=== PATIENT | female | born 1965 | race Caucasian/White ===

== ENCOUNTER 2022-04-29 22:55 | Inpatient (IN) | payer BC ==
[~2022-04-29] VITALS: Ht 175.3 cm; Wt 56.8 kg
[2022-04-29] MEDS ORDERED: ketorolac tromethamine 15mg/ml inj. IM ONE (23:05)
[2022-04-29] MEDS ORDERED: ondansetron 4mg rapidly disintigrating tab PO ONE (23:05)
[2022-04-29] MEDS ORDERED: morphine 4 MG/ML inj SYRINge IM ONE (23:05)
[2022-04-29] MEDS ORDERED: iohexol 300mg/ml 100ml inj. ONE (23:41)
[2022-04-29] MEDS ORDERED: morphine 4 MG/ML inj SYRINge IV ONE (23:45)
[2022-04-30 00:08] LABS: BASOPHILS % (AUTO) 0.3 % (0-1); EOSINOPHILS % (AUTO) 0.4 % (0-6); HEMATOCRIT 38.3 % (35.0-45.0); HEMOGLOBIN 12.9 g/dl (12.0-16.0); LYMPHOCYTES # (AUTO) 1.2 X10'3 (1.1-4.8); LYMPHOCYTES % (AUTO) 9.8 % (21-51); MEAN CORPUSCULAR HEMOGLOBIN 31.9 PG (27.0-31.0); MEAN CORPUSCULAR HGB CONC 33.7 g/dL (33.0-36.5); MEAN CORPUSCULAR VOLUME 94.5 FL (78-98); MONOCYTES # (AUTO) 0.6 X10'3 (0-0.9); MONOCYTES % (AUTO) 5.1 % (2-12); NEUTROPHILS # (AUTO) 10.2 X10'3 (1.8-7.7); NEUTROPHILS % (AUTO) 84.4 % (42-75); PLATELET COUNT 268 X10'3 (140-440); RED BLOOD COUNT 4.06 X10'6 (4.20-5.60); RED CELL DISTRIBUTION WIDTH 13.7 % (11.5-14.5); WHITE BLOOD COUNT 12.1 X10'3 (4.5-11.0)
[2022-04-30 00:19] LABS: ALANINE AMINOTRANSFERASE 30 U/L (12-78); ALBUMIN 3.6 G/DL (3.4-5.0); ALKALINE PHOSPHATASE 61 IU/L (46-116); ANION GAP 14 (8-16); ASPARTATE AMINO TRANSFERASE 24 U/L (10-37); BILIRUBIN,TOTAL 0.2 MG/DL (0.1-1.0); BLOOD UREA NITROGEN 19 MG/DL (7-18); BUN/CREATININE RATIO 23.2 (6.6-38.0); CALCIUM 8.5 MG/DL (8.5-10.1); CHLORIDE 110 MMOL/L (99-107); CREATININE 0.82 MG/DL (0.40-0.90); GLUCOSE 122 MG/DL (70-104); POTASSIUM 3.7 MMOL/L (3.5-5.1); SODIUM 144 MMOL/L (135-145); TOTAL CARBON DIOXIDE 20.5 MMOL/L (24-32); TOTAL PROTEIN 7.3 G/DL (6.4-8.2); eGFR 72 ML/MIN
[2022-04-30] MEDS ORDERED: ondansetron 4mg rapidly disintigrating tab PO PRN (02:05)
[2022-04-30] MEDS ORDERED: acetaminophen 325mg tablet PO PRN ×2 (02:05)
[2022-04-30] MEDS ORDERED: mag hydrox/Alum hydrox/simeth 30ml oral suspension PO PRN (02:05)
[2022-04-30] MEDS ORDERED: acetaminophen 650mg rectal suppository RC PRN (02:05)
[2022-04-30] MEDS ORDERED: morphine 2 MG/ML inj. syringe IV PRN (02:05)
[2022-04-30] MEDS ORDERED: diphenhydrAMINE 25mg capsule PO PRN (02:05)
[2022-04-30] MEDS ORDERED: HYDROcodone/acetaminophen 5mg/325mg tablet PO PRN (02:05)
[2022-04-30] MEDS ORDERED: bisacodyl 10mg suppository rectal RC PRN (02:05)
[2022-04-30] MEDS ORDERED: diphenhydrAMINE 50 mg/ml inj IV PRN (02:05)
[2022-04-30] MEDS ORDERED: HYDROmorphone inj. 0.5 MG/0.5 ML DISP.SYRIN IV PRN ×2 (02:05→15:50)
[2022-04-30 03:16] LABS: APTT 24 SECONDS (22-32)
[2022-04-30 03:25] LABS: HEMOGLOBIN A1C 5.4 % (4.5-6.2)
[2022-04-30 03:31] LABS: MAGNESIUM 1.9 MG/DL (1.5-2.4); PHOSPHORUS 2.7 MG/DL (2.3-4.5)
[2022-04-30] MEDS: ondansetron/PF 4mg/2ml inj IV PRN ×3 (05:50→19:40)
[2022-04-30] MEDS: HYDROcodone/acetaminophen 10/325mg tab PO PRN ×2 (05:50→10:34)
[2022-04-30] MEDS: pantoprazole 40mg Tablet.DR PO SCH (07:30)
[2022-04-30] MEDS ORDERED: docusate sod 100mg capsule PO SCH (08:00)
[2022-04-30] MEDS: morphine 2 MG/ML inj. syringe IV PRN ×2 (08:36→14:40)
[2022-04-30] MEDS: normal saline 1000ml 1,000 ML IV SCH ×3 (09:00→22:05)
[2022-04-30] MEDS ORDERED: aspirin 81mg, enteric-coated 1 TAB TABLET.DR PO ONE (10:05)
[2022-04-30 12:23] LABS: CLARITY,URINE CLEAR (Clear); COLOR,URINE YELLOW (Yellow); GLUCOSE, URINE NEGATIVE (Neg); KETONES,URINE NEGATIVE (Neg); LEUKOCYTE ESTERASE ,URINE NEGATIVE (Neg); NITRITES, URINE NEGATIVE (Neg); OCCULT BLOOD,URINE MODERATE (Neg); PH,URINE 6.5 (4.8-8.0); PROTEIN,URINE NEGATIVE (Neg); UROBILINOGEN,URINE 0.2 E.U/dL (0.2-1.0)
[2022-04-30 12:35] LABS: UA COLLECTION TYPE FOLEY CATH
[2022-04-30 12:37] LABS: WBC,URINE 0-4 /HPF (0-4)
[2022-04-30 12:38] LABS: BACTERIA,URINE NONE SEEN /HPF (Neg); SQUAMOUS EPITHELIAL CELL,UR FEW /LPF (FEW)
[2022-04-30] MEDS: levoTHYROXINE 75mcg tablet PO SCH (14:40)
[2022-04-30] MEDS: HYDROmorphone 1 mg/ml syringe IV PRN ×2 (16:48→21:36)
[2022-04-30] MEDS: oxyCODONE/APAP 10/325mg tablet PO PRN (18:23)
--- NOTE | 2022-04-30 19:03 | NUR ---
ASSUMED CARE OF PT FROM JONNIE HAMMOND, FIRST CONTACT WITH PT, TALKING FULL SENTENCES, NO RESP DISTRESS, ASKING FOR SOMETHING TO EAT. PT TO GO ROOM 3015, REPORT GIVEN TO SALO HAMMOND
[2022-04-30 20:00] VITALS: BP_SYST 108; BP_SYST 110; BP_DIAS 65; BP_DIAS 75
[2022-04-30] MEDS ORDERED: temazepam 15mg capsule PO PRN (21:00)
[2022-04-30 22:00] VITALS: BP 110/70
[2022-05-01 02:00] VITALS: BP 105/50
[2022-05-01] MEDS: HYDROmorphone 1 mg/ml syringe IV PRN ×5 (02:35→21:24)
[2022-05-01] MEDS: ondansetron/PF 4mg/2ml inj IV PRN ×3 (03:32→17:35)
[2022-05-01] MEDS: oxyCODONE/APAP 10/325mg tablet PO PRN ×4 (03:33→23:45)
[2022-05-01 07:00] VITALS: BP 125/69
[2022-05-01] MEDS: levoTHYROXINE 75mcg tablet PO SCH (07:17)
[2022-05-01] MEDS: pantoprazole 40mg Tablet.DR PO SCH (07:18)
[2022-05-01] MEDS: aspirin 81mg, enteric-coated 1 TAB TABLET.DR PO SCH (07:19)
[2022-05-01 07:27] LABS: BASOPHILS % (AUTO) 0.4 % (0-1); EOSINOPHILS # (AUTO) 0.1 X10'3 (0-0.9); EOSINOPHILS % (AUTO) 1.7 % (0-6); HEMOGLOBIN 11.7 g/dl (12.0-16.0); LYMPHOCYTES # (AUTO) 1.5 X10'3 (1.1-4.8); LYMPHOCYTES % (AUTO) 19.2 % (21-51); MEAN CORPUSCULAR HEMOGLOBIN 32.7 PG (27.0-31.0); MEAN CORPUSCULAR HGB CONC 34.4 g/dL (33.0-36.5); MEAN CORPUSCULAR VOLUME 95.1 FL (78-98); MEAN PLATELET VOLUME 8.3 FL (7.4-10.4); MONOCYTES # (AUTO) 0.7 X10'3 (0-0.9); MONOCYTES % (AUTO) 8.6 % (2-12); NEUTROPHILS # (AUTO) 5.6 X10'3 (1.8-7.7); NEUTROPHILS % (AUTO) 70.1 % (42-75); PLATELET COUNT 211 X10'3 (140-440); RED BLOOD COUNT 3.57 X10'6 (4.20-5.60); RED CELL DISTRIBUTION WIDTH 13.9 % (11.5-14.5)
[2022-05-01 07:54] LABS: ALANINE AMINOTRANSFERASE 19 U/L (12-78); ALBUMIN 2.8 G/DL (3.4-5.0); ALBUMIN/GLOBULIN RATIO 0.9 (1.1-1.5); ALKALINE PHOSPHATASE 53 IU/L (46-116); ANION GAP 6 (8-16); ASPARTATE AMINO TRANSFERASE 20 U/L (10-37); BILIRUBIN,TOTAL 0.4 MG/DL (0.1-1.0); BLOOD UREA NITROGEN 8 MG/DL (7-18); BUN/CREATININE RATIO 10.4 (6.6-38.0); CALCIUM 7.8 MG/DL (8.5-10.1); CHLORIDE 108 MMOL/L (99-107); CHOL/HDL RATIO 2.1 (0.00-4.99); CHOLESTEROL 135 MG/DL (0-200); CREATININE 0.77 MG/DL (0.40-0.90); GLUCOSE 94 MG/DL (70-104); HDL CHOLESTEROL 64 MG/DL (35-60); LDL CHOLESTEROL 50 MG/DL (50-100); POTASSIUM 3.5 MMOL/L (3.5-5.1); SODIUM 141 MMOL/L (135-145); TOTAL PROTEIN 5.9 G/DL (6.4-8.2); TRIGLYCERIDES 95 MG/DL (20-135); eGFR 77 ML/MIN
[2022-05-01] MEDS: normal saline 1000ml 1,000 ML IV SCH (08:05)
[2022-05-01] MEDS ORDERED: LEVO150T8 PO (10:37)
[2022-05-01 11:00] VITALS: BP 119/74
--- NOTE | 2022-05-01 11:59 | NUR ---
page to orthotics technician [id number]. Susanne needs TLSO brace please. Orly @[phone]
[2022-05-01] MEDS: magnesium hydroxide 30ml (MOM) UD suspension PO PRN (15:53)
--- NOTE | 2022-05-01 18:27 | NUR ---
Problems reprioritized. Patient report given, questions answered & plan of care reviewed with Alejandro HAMMOND. Patient resting in bed in no acute distress.
[2022-05-01 18:30] VITALS: BP 107/66
[2022-05-01] MEDS: docusate sod 100mg capsule PO SCH (20:08)
[2022-05-01] MEDS: polyethylene glycol 3350 17gm powd pack PO SCH (20:08)
--- NOTE | 2022-05-01 21:30 | NUR ---
STARTED BLADDER TRAINING OVERNIGHT.
[2022-05-01 22:00] VITALS: BP 101/77
--- NOTE | 2022-05-01 23:30 | NUR ---
DRAINED PT BLADDER VIA [facility] CATHETER ANTICIPATING MD TO DC [facility] TODAY. PT AWARE OF FEELING OF FILLING BLADDER.
[2022-05-02] MEDS: HYDROmorphone 1 mg/ml syringe IV PRN ×5 (02:47→21:58)
--- NOTE | 2022-05-02 03:30 | NUR ---
DRAINED PT'S BLADDER VIA [facility]. AGAIN PT ABLE TO TELL BLADDER WAS FILLING
[2022-05-02] MEDS: oxyCODONE/APAP 10/325mg tablet PO PRN ×4 (05:32→19:32)
[2022-05-02 06:00] VITALS: BP 134/77
--- NOTE | 2022-05-02 07:03 | NUR ---
Problems reprioritized. Patient report given, questions answered & plan of care reviewed with BRAULIO. Addendum: 05/02/22 at 0703 by Saravanan Boss RN Amended: Links added.
[2022-05-02 07:40] LABS: BASOPHILS % (AUTO) 0.5 % (0-1); EOSINOPHILS # (AUTO) 0.2 X10'3 (0-0.9); EOSINOPHILS % (AUTO) 3.1 % (0-6); HEMATOCRIT 34.8 % (35.0-45.0); HEMOGLOBIN 11.7 g/dl (12.0-16.0); LYMPHOCYTES # (AUTO) 1.4 X10'3 (1.1-4.8); LYMPHOCYTES % (AUTO) 17.6 % (21-51); MEAN CORPUSCULAR HEMOGLOBIN 32.3 PG (27.0-31.0); MEAN CORPUSCULAR HGB CONC 33.6 g/dL (33.0-36.5); MEAN CORPUSCULAR VOLUME 96.1 FL (78-98); MEAN PLATELET VOLUME 8.5 FL (7.4-10.4); MONOCYTES # (AUTO) 0.7 X10'3 (0-0.9); MONOCYTES % (AUTO) 8.8 % (2-12); NEUTROPHILS # (AUTO) 5.4 X10'3 (1.8-7.7); PLATELET COUNT 200 X10'3 (140-440); RED BLOOD COUNT 3.62 X10'6 (4.20-5.60); RED CELL DISTRIBUTION WIDTH 14.2 % (11.5-14.5); WHITE BLOOD COUNT 7.7 X10'3 (4.5-11.0)
[2022-05-02 08:02] LABS: ALANINE AMINOTRANSFERASE 18 U/L (12-78); ALBUMIN 2.7 G/DL (3.4-5.0); ALBUMIN/GLOBULIN RATIO 0.8 (1.1-1.5); ALKALINE PHOSPHATASE 54 IU/L (46-116); ANION GAP 4 (8-16); ASPARTATE AMINO TRANSFERASE 18 U/L (10-37); BILIRUBIN,TOTAL 0.4 MG/DL (0.1-1.0); BLOOD UREA NITROGEN 6 MG/DL (7-18); CALCIUM 8.2 MG/DL (8.5-10.1); CHLORIDE 108 MMOL/L (99-107); CREATININE 0.67 MG/DL (0.40-0.90); GLUCOSE 96 MG/DL (70-104); POTASSIUM 4.5 MMOL/L (3.5-5.1); SODIUM 143 MMOL/L (135-145); TOTAL CARBON DIOXIDE 31.1 MMOL/L (24-32); eGFR 90 ML/MIN
[2022-05-02] MEDS: docusate sod 100mg capsule PO SCH ×2 (08:11→19:31)
[2022-05-02] MEDS: aspirin 81mg, enteric-coated 1 TAB TABLET.DR PO SCH (08:11)
[2022-05-02] MEDS: levoTHYROXINE 75mcg tablet PO SCH (08:11)
[2022-05-02] MEDS: pantoprazole 40mg Tablet.DR PO SCH (08:11)
[2022-05-02] MEDS: ondansetron/PF 4mg/2ml inj IV PRN ×2 (08:19→20:21)
[2022-05-02 10:00] VITALS: BP 125/71
[2022-05-02] MEDS ORDERED: bisacodyl 10mg suppository rectal RC PRN (14:40)
[2022-05-02] MEDS ORDERED: cyclobenzaprine 10mg tablet PO PRN (17:35)
[2022-05-02 18:00] VITALS: BP 115/63
--- NOTE | 2022-05-02 18:32 | NUR ---
Problems reprioritized. Patient report given, questions answered & plan of care reviewed with STEPHANY Villanueva.
--- NOTE | 2022-05-02 18:33 | NUR ---
Patient in room PCU 3015. I have received report from STEPHANY Briones and had the opportunity to ask questions and assume patient care.
[2022-05-02] MEDS: ketorolac tromethamine 15mg/ml inj. IV SCH (20:22)
[2022-05-02] MEDS ORDERED: psyllium seed 3.4 gm packet PO SCH (21:00)
[2022-05-02] MEDS: polyethylene glycol 3350 17gm powd pack PO SCH (21:11)
[2022-05-03] MEDS: ketorolac tromethamine 15mg/ml inj. IV SCH ×3 (01:54→13:15)
[2022-05-03 02:00] VITALS: BP 109/62
[2022-05-03] MEDS: oxyCODONE/APAP 10/325mg tablet PO PRN ×3 (03:52→14:17)
[2022-05-03] MEDS: HYDROmorphone 1 mg/ml syringe IV PRN (05:49)
[2022-05-03 06:00] VITALS: BP 129/64
--- NOTE | 2022-05-03 06:11 | NUR ---
Problems reprioritized. Patient report given, questions answered & plan of care reviewed with STEPHANY Rodrigues.
--- NOTE | 2022-05-03 06:37 | NUR ---
Patient in room PCU 3015. I have received report from STEPHANY Villanueva and had the opportunity to ask questions and assume patient care.
[2022-05-03] MEDS: levoTHYROXINE 75mcg tablet PO SCH (07:00)
[2022-05-03 07:23] LABS: BASOPHILS % (AUTO) 0.5 % (0-1); EOSINOPHILS # (AUTO) 0.3 X10'3 (0-0.9); EOSINOPHILS % (AUTO) 3.7 % (0-6); HEMATOCRIT 35.8 % (35.0-45.0); HEMOGLOBIN 12.2 g/dl (12.0-16.0); LYMPHOCYTES # (AUTO) 1.8 X10'3 (1.1-4.8); LYMPHOCYTES % (AUTO) 23.4 % (21-51); MEAN CORPUSCULAR HEMOGLOBIN 32.9 PG (27.0-31.0); MEAN CORPUSCULAR HGB CONC 34.2 g/dL (33.0-36.5); MEAN PLATELET VOLUME 8.2 FL (7.4-10.4); MONOCYTES # (AUTO) 0.7 X10'3 (0-0.9); MONOCYTES % (AUTO) 9.4 % (2-12); NEUTROPHILS # (AUTO) 4.7 X10'3 (1.8-7.7); PLATELET COUNT 195 X10'3 (140-440); RED BLOOD COUNT 3.73 X10'6 (4.20-5.60); RED CELL DISTRIBUTION WIDTH 13.8 % (11.5-14.5); WHITE BLOOD COUNT 7.5 X10'3 (4.5-11.0)
[2022-05-03] MEDS: docusate sod 100mg capsule PO SCH (07:50)
[2022-05-03] MEDS: pantoprazole 40mg Tablet.DR PO SCH (07:50)
[2022-05-03] MEDS: aspirin 81mg, enteric-coated 1 TAB TABLET.DR PO SCH (07:50)
[2022-05-03] MEDS: magnesium hydroxide 30ml (MOM) UD suspension PO PRN (07:57)
[2022-05-03] MEDS ORDERED: non-formulary drug (Levothyroxine Sodium 1 TAB) PO SCH (08:00)
--- NOTE | 2022-05-03 08:01 | NUR ---
Pt states she took levothyroxine, that she had in her purse, prior to eating breakfast. I educated pt on not taking home meds while in hospital. Pt states understanding and willingness to comply with instructions for duration of hospital stay.
[2022-05-03 08:06] LABS: ALANINE AMINOTRANSFERASE 17 U/L (12-78); ALBUMIN 2.8 G/DL (3.4-5.0); ALBUMIN/GLOBULIN RATIO 0.9 (1.1-1.5); ALKALINE PHOSPHATASE 58 IU/L (46-116); ANION GAP 0 (8-16); ASPARTATE AMINO TRANSFERASE 18 U/L (10-37); BILIRUBIN,TOTAL 0.4 MG/DL (0.1-1.0); BLOOD UREA NITROGEN 10 MG/DL (7-18); BUN/CREATININE RATIO 12.5 (6.6-38.0); CALCIUM 8.6 MG/DL (8.5-10.1); CHLORIDE 104 MMOL/L (99-107); GLUCOSE 88 MG/DL (70-104); SODIUM 135 MMOL/L (135-145); TOTAL CARBON DIOXIDE 31.2 MMOL/L (24-32); eGFR 74 ML/MIN
--- NOTE | 2022-05-03 10:05 | NUR ---
FC DC'd per Dr Hernandez's order. Pt tolerated well. 300cc's clear yellow urine drained. Education provided regarding post-FC removal.
[2022-05-03 11:00] VITALS: BP 109/63
[2022-05-03] MEDS: ondansetron/PF 4mg/2ml inj IV PRN (12:38)
[2022-05-03] MEDS ORDERED: CYCL-1 PO (14:18)
[2022-05-03] MEDS ORDERED: OXYC1TAB17 PO (14:18)
== END 2022-05-03 16:10 | disposition home or self-care (01) | DRG 184 ==
LOC: ER 22:56 → ED HOLD 04-30 02:10 → PCU 3S 04-30 19:15
PROVIDERS: ADMIT Family Medicine; ATTEND Family Medicine
PROC: BW251ZZ Computerized Tomography (CT Scan) of Chest, Abdomen and Pelvis using Low Osmolar Contrast (ICD-10-PCS; principal; 2022-04-30)
DX: S22.42XA Multiple fractures of ribs, left side, initial encounter for closed fracture (principal); E87.2 Acidosis; S22.068A Other fracture of T7-T8 thoracic vertebra, initial encounter for closed fracture; S22.078A Other fracture of T9-T10 vertebra, initial encounter for closed fracture; S32.018A Other fracture of first lumbar vertebra, initial encounter for closed fracture; K59.00 Constipation, unspecified; M47.812 Spondylosis without myelopathy or radiculopathy, cervical region; E03.9 Hypothyroidism, unspecified; W18.39XA Other fall on same level, initial encounter; M54.9 Dorsalgia, unspecified; S40.012A Contusion of left shoulder, initial encounter; Z90.13 Acquired absence of bilateral breasts and nipples; Z98.82 Breast implant status; Y93.89 Activity, other specified; Y92.89 Other specified places as the place of occurrence of the external cause; Y99.8 Other external cause status; Z85.3 Personal history of malignant neoplasm of breast; Z79.890 Hormone replacement therapy
CPT/HCPCS: 36415; 71101; 71260; 72125; 73030; 73060; 74177; 80053; 80061; 81001; 83036; 83735; 83880; 84100; 84443; 85025; 85610; 85730; 92508; 92616; 96372; 96374; 97116; 97161; 97530; 99285; A4314; A6212; A6213; G0378; J1170; J1885; J2270; J2405; J3490; J7030; Q9967